=== PATIENT | male | born 1950 | race Caucasian/White ===

== ENCOUNTER 2016-06-24 04:25 | Observation (INO) | payer OTHER ==
[~2016-06-24] VITALS: Ht 180.3 cm; Wt 90.3 kg
[~2016-06-24 04:25] MED LIST: ADULT LOW DOSE81 M1 PO; ALPHA LIPOIC A600 MG PO; AMLODIPINE BESYL5 MG PO; ASPIR 8181 M1 PO; ASPIRIN E.C.81 M1 PO; ASPIRIN325 MG PO; ASTRAGALUS470 MG PO; Aldactone PO; BETAPACE,SORIN120 M1 PO; CARNITINE PO; CO Q-1010 MG PO; COREG6.25 M1 PO; COUMADIN,JANTOVE4 MG PO; COUMADIN2.5 MG PO; COUMADIN4 MG PO; DOCUSATE SODIU100 MG PO; ENDOCET 5-3251 EACH PO; Ecotrin PO; FISH OIL SOFTG1 EACH PO; FORTAMET500 M1 PO; GLUCOPHAGE500 MG PO; IMDUR120 MG PO; Imdur PO; LASIX40 MG PO; LIPITOR40 MG PO; LISINOPRIL20 MG PO; LISINOPRIL5 MG PO; LOPRESSOR25 MG PO; METFORMIN HCL500 MG PO; MULTIVITAMIN1 EAC2 PO; NITROSTAT,NITR0.4 M1 SL; NITROSTAT0.4 MG SL; OLIVE LEAF EXT250 MG PO; PEPCID20 MG PO; PLAVIX75 MG PO; PRINIVIL10 MG PO; QUINAGLUTE324 MG PO; QUINIDINE GLUC324 MG PO; SOTALOL120 MG PO; SPIRONOLACTONE50 MG PO; Tylenol/Codeine #3 PO; VICODIN 5-3001 EACH PO; ZESTRIL,PRINIVI10 M1 PO; ZESTRIL,PRINIVI20 MG PO; [UNRECOGNIZED DRUG - OTHER] PO
[2016-06-24 04:44] LABS: HEMATOCRIT 38.8 % (38.0-50.0); MCH 30.9 PG (29.0-34.0); MCHC 34.5 G/DL (30.0-36.0); MCV 89.4 FL (86-99); MEAN PLAT.VOLUME 9.2 uM^3 (9.0-12.4); PLATELET COUNT 186 K/uL (156-360); RBC DIS.WIDTH-CV 12.7 % (11.8-14.6); RBC DIS.WIDTH-SD 41.9 % (39-53); RED BLOOD COUNT 4.34 M/uL (4.00-5.50); WHITE BLOOD COUNT 4.1 K/uL (4.1-10.2)
[2016-06-24 04:52] LABS: CHLORIDE 109 mEq/L (99-109); MAGNESIUM 1.8 mg/dL (1.3-2.7); POTASSIUM 4.1 mEq/L (3.7-5.4); SODIUM 139 mEq/L (136-147)
[2016-06-24 04:54] LABS: GLUCOSE 171 mg/dL (70-99)
[2016-06-24 04:55] LABS: ANION GAP 10 MEQ/L (2-14)
[2016-06-24 04:58] LABS: GFR ESTIMATE (CALCULATED) > 59 mL/min/; UREA NITROGEN (BUN) 16 mg/dL (9-23)
[2016-06-24 05:06] LABS: TROP-I INTERPRETATION NEGATIVE; TROPONIN-I 0.01 ng/mL (0.0-0.30)
[2016-06-24 06:54] LABS: INTER. NORMALIZED RATIO 2.3; PROTHROMBIN TIME 24.5 (9.2-11.2); PTT 42.2 (25-32)
[2016-06-24 07:37] VITALS: BP 150/75
[2016-06-24 11:22] LABS: TROP-I INTERPRETATION NEGATIVE; TROPONIN-I 0.05 ng/mL (0.0-0.30)
[2016-06-24 11:59] VITALS: BP 120/64
[2016-06-24] MEDS ORDERED: NITROSTAT0.4 MG SL (12:41)
== END 2016-06-24 13:33 | disposition home or self-care (01) ==
LOC: EME → EDBD 04:25 → EME 04:25 → EDOF 05:49 → 5WEST 07:32
PROVIDERS: Emergency Medicine; Internal Medicine
DX: R07.89 Other chest pain (principal); I25.5 Ischemic cardiomyopathy; I25.10 Atherosclerotic heart disease of native coronary artery without angina pectoris; Z95.1 Presence of aortocoronary bypass graft; I50.9 Heart failure, unspecified; Z95.810 Presence of automatic (implantable) cardiac defibrillator; I34.0 Nonrheumatic mitral (valve) insufficiency; E11.65 Type 2 diabetes mellitus with hyperglycemia; I11.0 Hypertensive heart disease with heart failure; E78.00 Pure hypercholesterolemia, unspecified
CPT/HCPCS: 71020; 80048; 82948; 83735; 84100; 84484; 85027; 85610; 85730; 93005; 99281; 99284; G0378; J1815; J7030

== ENCOUNTER 2017-03-18 09:41 | Emergency (ER) | payer OTHER ==
[~2017-03-18] VITALS: Ht 180.3 cm; Wt 93.0 kg
[2017-03-18 10:20] LABS: HEMATOCRIT 39.3 % (38.0-50.0); HEMOGLOBIN 13.8 G/DL (12.5-16.6); MCH 31.6 PG (29.0-34.0); MCHC 35.1 G/DL (30.0-36.0); MCV 89.9 FL (86-99); PLATELET COUNT 193 K/uL (156-360); RBC DIS.WIDTH-CV 12.4 % (11.8-14.6); RBC DIS.WIDTH-SD 41.1 % (39-53); RED BLOOD COUNT 4.37 M/uL (4.00-5.50); WHITE BLOOD COUNT 4.3 K/uL (4.1-10.2)
[2017-03-18 10:39] LABS: CHLORIDE 106 mEq/L (99-109); SODIUM 138 mEq/L (136-147)
[2017-03-18 10:41] LABS: GLUCOSE 166 mg/dL (70-99); TROP-I INTERPRETATION NEGATIVE; TROPONIN-I < 0.01 ng/mL (0.0-0.30)
[2017-03-18 10:45] LABS: CREATININE 1.1 mg/dL (0.6-1.3); GFR ESTIMATE (CALCULATED) > 59 mL/min/ (58.99-99999)
[2017-03-18 10:46] LABS: UREA NITROGEN (BUN) 11 mg/dL (9-23)
[2017-03-18 15:19] LABS: TROP-I INTERPRETATION NEGATIVE; TROPONIN-I < 0.01 ng/mL (0.0-0.30)
[2017-03-18 15:34] VITALS: BP 136/80
== END 2017-03-18 15:41 | disposition home or self-care (01) ==
LOC: EME 09:41
PROVIDERS: Physician Assistant Medical
DX: R07.9 Chest pain, unspecified (principal); I11.0 Hypertensive heart disease with heart failure; I50.9 Heart failure, unspecified; E78.5 Hyperlipidemia, unspecified; E11.9 Type 2 diabetes mellitus without complications; I25.2 Old myocardial infarction; Z95.5 Presence of coronary angioplasty implant and graft; Z95.1 Presence of aortocoronary bypass graft; Z79.01 Long term (current) use of anticoagulants; Z87.891 Personal history of nicotine dependence
CPT/HCPCS: 71046; 80048; 84484; 85027; 93005